=== PATIENT | female | born 1965 ===

== ENCOUNTER 2021-07-02 07:51 | Emergency (ER) | payer OTHER, SELFPAY ==
--- NOTE | ~2021-07-02 | US_ITS ---
EXAMINATION: US VENOUS ULTRASOUND WITH DOPPLER LOWER EXTREMITY, BILATERAL CLINICAL INFORMATION: Lower extremity edema and pain. History of previous DVT. COMPARISON: September 24, 2015 and January 13, 2015 TECHNIQUE: Ultrasound of the deep veins is performed from the hip to the calf with compression sonography and color and pulse Doppler assessment. Spectral analysis with color-flow imaging is performed. FINDINGS: RIGHT: There is normal venous compression and respiratory variation and augmented flow. The visualized common femoral vein, superficial femoral vein, profunda femoral vein, popliteal vein, and the trifurcation region shows no evidence of deep venous thrombosis. There is no significant popliteal fossa cyst. No popliteal artery aneurysm. LEFT: There is normal venous compression and respiratory variation and augmented flow. The visualized common femoral vein, superficial femoral vein, profunda femoral vein, popliteal vein, and the trifurcation region shows no evidence of deep venous thrombosis. There is no significant popliteal fossa cyst. No popliteal artery aneurysm. I do not see evidence for sequela of deep venous thrombosis. US/US venous duplex LE BI IMPRESSION: No acute DVT demonstrated in the bilateral lower extremities.
--- NOTE | ~2021-07-02 | XR_ITS ---
EXAMINATION: XR CHEST CLINICAL INFORMATION: Shortness of breath COMPARISON: None TECHNIQUE: Portable upright AP view of the chest was obtained. FINDINGS: Lungs are clear. There is no pneumothorax, airspace consolidation or groundglass opacity. No effusion. The heart is normal in size. The vascularity is normal. The hilar and mediastinal contours and visualized bony structures are unremarkable. XR/XR chest 1V IMPRESSION: Unremarkable examination.
[2021-07-02 08:08] VITALS: BP 152/111; PULSE 75; RESP 19; O2SAT 98; BMI 53.0
--- NOTE | 2021-07-02 09:31 | ECG_ITS ---
Test Reason : WEAKNESS Blood Pressure : / mmHG Vent. Rate : 056 BPM Atrial Rate : 056 BPM P-R Int : 136 ms QRS Dur : 086 ms QT Int : 432 ms P-R-T Axes : 056 -16 017 degrees QTc Int : 416 ms Sinus bradycardia Otherwise normal ECG No previous ECGs available Referred By: Shani Iglesias Electronically Signed By:DALE ZACARIAS MD
--- NOTE | 2021-07-02 09:34 | ED.GENADULT ---
HPI - General Adult General Chief complaint: General Medical Stated complaint: leg pain & swelling Time Seen by Provider: 07/02/21 09:23 Source: patient Mode of arrival: ambulatory Limitations: no limitations History of Present Illness HPI narrative: Patient comes to the emergency room complaining of bilateral lower extremity edema. Patient states that she has had lower extremity edema for 10-15 years, taking daily 10 mg of Lasix. Over last year, the swelling has become more frequent. However, over last 4 days the lower extremities have been hurting, becoming more tense, painful to touch from the toes to the knees bilaterally. 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 Patient states that sometimes when she walks she gets short of breath, which has been going on for about 3 months now. Patient denies chest pain. Related Data Previous Rx's Medication Instructions Recorded furosemide 20 mg tablet (Lasix) 20 mg PO BID #8 tab 07/02/21 Allergies Allergy/AdvReac Type Severity Reaction Status Date / Time aspirin [ASPIRIN] Allergy Unknown HIVES/RASH Unverified 05/08/20 15:17 iodine [IODINE] Allergy Unknown RASH Unverified 05/08/20 15:17 latex [LATEX] Allergy Unknown HIVES Unverified 05/08/20 15:17 shellfish derived Allergy Unknown SWELLING Unverified 05/08/20 15:17 [SHELLFISH DERIVED] AND RASH Review of Systems Review of Systems: Constitutional : No Weight loss, No Fever, No Chills, No Night Sweats, No Fatigue, No Malaise ENT/Mouth : No Hearing loss, No Ear Pain, No Nasal Congestion, No Sinus Pain, No Hoarseness, No sore throat, No Rhinorrhea, No Swallowing Difficulty Eyes: No Eye Pain, No Swelling, No Redness, No Foreign Body, No Discharge, No Vision Changes Cardiovascular : No Chest Pain, complaining of occasional palpitations, shortness of breath with exertion, complaining of worsening lower extremity edema Respiratory : No Cough, No Sputum, No Wheezing, No Smoke Exposure, No Dyspnea Gastrointestinal : No Nausea, No Vomiting, No Diarrhea, No Constipation, No abdominal Pain, No Hematochezia, No Melena Genitourinary : no irregular bleeding, No Dysuria, No Urinary Frequency, No Hematuria, No Urinary Incontinence, No Urgency, No Flank Pain, No Urinary Flow Changes, No Hesitancy Musculoskeletal : No joint pain, No Myalgias, No Joint Swelling Skin : No Skin Lesions, No rash Neuro : No Weakness, No Numbness, No Paresthesias, No Loss of Consciousness, No Dizziness, No Headache Psych : No Anxiety/Panic, No Depression, No SI/HI/AH/VH, No Social Issues, Heme/Lymph: No Bruising, No Bleeding,No Lymphadenopathy Endocrine : No Polyuria, No Polydipsia, No Temperature Intolerance FOR[facility]LY [facility] Past Medical History Medical History (Updated 07/02/21 @ 12:38 by Shani Iglesias MD) Arthritis Asthma DVT (deep venous thrombosis) Migraine Social History Social History Advance Directives: No Physical Exam Vital Signs: Vital Signs: Last Vital Signs Pulse 75 07/02/21 08:08 Resp 19 07/02/21 08:08 BP 152/111 H 07/02/21 08:08 Pulse Ox 98 07/02/21 08:08 Body Mass Index 53.0 Const: Other: Appearance: Alert. Oriented X3. No acute distress. Eyes: Pupils equal, round and reactive to light. ENT: Pharynx normal. Neck: Normal inspection. Neck supple. No lymph nodes noted. No crepitus CVS: Normal heart rate and rhythm. Pulses normal. Normal S1 and S2 Respiratory: No respiratory distress. Breath sounds normal. No Wheezing. No rales Abdomen: Soft and nontender. No rigidity. No distention. Skin: Skin warm and dry. Normal skin color. Normal skin turgor. Extremities: +2 bilateral pitting edema, pain to palpation in the feet, ankles and calfs. No Lacerations. No Rash Neuro: Oriented X 3. No motor deficit. No sensory deficit. Moving all extermities. No slurred speech. Course Course Course Narrative: I discussed the labs and imaging with the patient, patient likely having venous insufficiency. Chest x-ray does not show edema. Patient has no respiratory symptoms. I discussed with the patient that instead of taking Lasix 10 mg she will be taking 20 mg in the morning 20 in the afternoon for several days and also patient will need close follow-up with her PCP for repeat labs. Patient agrees with plan. Medical Decision Making Lab Data Result diagrams: 07/02/21 09:49 07/02/21 09:49 Labs: Lab Results 07/02/21 07/02/21 07/02/21 Range/Units 09:49 09:49 09:49 WBC 3.0 L (4.8-10.8) X10*3/uL RBC 4.29 (4.20-5.50) X10*6/uL Hgb 12.4 (12.0-16.0) g/dl Hct 39.7 (37.0-47.0) % MCV 92.5 (80.0-98.0) fL MCH 28.9 (27.0-33.0) pg MCHC 31.2 (31.0-35.0) g/dl RDW 15.5 (11.0-16.0) % Plt Count 179 (160-400) X10*3/uL MPV 12.8 H (9.4-12.3) fL Immature Gran % (Auto) 0.0 (0.0-0.4) % Neut % (Auto) 35.9 L (45-73) % Lymph % (Auto) 47.9 H (20-40) % Mcleod % (Auto) 12.2 H (2-11) % Eos % (Auto) 3.0 (0-4) % Baso % (Auto) 1.0 (0-2) % Lymph # (Auto) 1.5 (1.2-4.9) X10*3/uL Mcleod # (Auto) 0.4 (0.1-1.2) X10*3/uL Eos # (Auto) 0.1 (0.0-0.4) X10*3/uL Baso # (Auto) 0.0 (0.0-0.2) X10*3/uL Abs Immat Gran (auto) 0.00 (0.00-0.03) X10*3/uL Absolute Neuts (auto) 1.1 L (2.0-8.3) x10*3/uL Absolute Nucleated RBC 0.000 (0.0-0.012) X10*3/uL Nucleated RBC % (auto) 0.0 (0.0-0.2) /100WBC PT 11.5 (9.9-13.0) SEC INR 1.0 (0.9-1.1) Sodium 142 (135-145) mmol/L Potassium 4.4 (3.3-5.1) mmol/L Chloride 107 (96-108) mmol/L Carbon Dioxide 28 (22-29) mmol/L Anion Gap 11 L (12-20) BUN 13 (9-16) mg/dL Creatinine 0.77 (0.5-1.4) mg/dL Estim Creat Clear Calc 105.1 Estimated GFR > 60 Random Glucose 83 (60-115) mg/dL Calcium 8.8 (8.4-10.2) mg/dL Total Bilirubin 0.5 (0.0-1.0) mg/dL Direct Bilirubin 0.2 (0.0-0.5) mg/dL AST 15 (5-31) U/L ALT 13 (0-31) U/L Alkaline Phosphatase 94 (39-117) U/L Troponin I High Sens (<3.5-17.0) ng/L B-Natriuretic Peptide (<100) pg/mL Total Protein 7.1 (6.5-8.0) g/dL Albumin 4.0 (3.5-5.0) g/dL COVID-19 (CARON) (Negative) COVID-19 Clin Com 07/02/21 07/02/21 Range/Units 09:49 09:49 WBC (4.8-10.8) X10*3/uL RBC (4.20-5.50) X10*6/uL Hgb (12.0-16.0) g/dl Hct (37.0-47.0) % MCV (80.0-98.0) fL MCH (27.0-33.0) pg MCHC (31.0-35.0) g/dl RDW (11.0-16.0) % Plt Count (160-400) X10*3/uL MPV (9.4-12.3) fL Immature Gran % (Auto) (0.0-0.4) % Neut % (Auto) (45-73) % Lymph % (Auto) (20-40) % Mcleod % (Auto) (2-11) % Eos % (Auto) (0-4) % Baso % (Auto) (0-2) % Lymph # (Auto) (1.2-4.9) X10*3/uL Mcleod # (Auto) (0.1-1.2) X10*3/uL Eos # (Auto) (0.0-0.4) X10*3/uL Baso # (Auto) (0.0-0.2) X10*3/uL Abs Immat Gran (auto) (0.00-0.03) X10*3/uL Absolute Neuts (auto) (2.0-8.3) x10*3/uL Absolute Nucleated RBC (0.0-0.012) X10*3/uL Nucleated RBC % (auto) (0.0-0.2) /100WBC PT (9.9-13.0) SEC INR (0.9-1.1) Sodium (135-145) mmol/L Potassium (3.3-5.1) mmol/L Chloride (96-108) mmol/L Carbon Dioxide (22-29) mmol/L Anion Gap (12-20) BUN (9-16) mg/dL Creatinine (0.5-1.4) mg/dL Estim Creat Clear Calc Estimated GFR Random Glucose (60-115) mg/dL Calcium (8.4-10.2) mg/dL Total Bilirubin (0.0-1.0) mg/dL Direct Bilirubin (0.0-0.5) mg/dL AST (5-31) U/L ALT (0-31) U/L Alkaline Phosphatase (39-117) U/L Troponin I High Sens < 3.5 (<3.5-17.0) ng/L B-Natriuretic Peptide 116 H (<100) pg/mL Total Protein (6.5-8.0) g/dL Albumin (3.5-5.0) g/dL COVID-19 (CARON) Negative (Negative) COVID-19 Clin Com See Note Imaging Data Venous US: Radiologist's impression: FINDINGS: RIGHT: There is normal venous compression and respiratory variation and augmented flow. The visualized common femoral vein, superficial femoral vein, profunda femoral vein, popliteal vein, and the trifurcation region shows no evidence of deep venous thrombosis. ? There is no significant popliteal fossa cyst. No popliteal artery aneurysm. LEFT: There is normal venous compression and respiratory variation and augmented flow. The visualized common femoral vein, superficial femoral vein, profunda femoral vein, popliteal vein, and the trifurcation region shows no evidence of deep venous thrombosis. ? There is no significant popliteal fossa cyst. No popliteal artery aneurysm. I do not see evidence for sequela of deep venous thrombosis. US/US venous duplex LE BI IMPRESSION: No acute DVT demonstrated in the bilateral lower extremities. Chest x-ray: Radiologist's impression: FINDINGS: Lungs are clear. There is no pneumothorax, airspace consolidation or groundglass opacity. No effusion. The heart is normal in size. The vascularity is normal. The hilar and mediastinal contours and visualized bony structures are unremarkable. XR/XR chest 1V IMPRESSION: Unremarkable examination. ECG Data Attestation: I personally reviewed and interpreted this ECG as follows: (Pain is bradycardia, heart 56, no ST segment depression or elevation, no T-wave inversion, QTC 416) Discharge Plan Discharge Clinical Impression: Bilateral lower extremity edema Patient Disposition: Home, Self-Care Instructions: Leg Edema (ED) Additional Instructions: Please follow-up with your primary care physician tomorrow. If you have any worsening or new symptoms, please return to the emergency room or call 911 Prescriptions: New furosemide [Lasix] 20 mg tablet 20 mg PO BID Qty: 8 RF: 0
[2021-07-02 09:56] LABS: MANUAL DIFF FLAG NO
[2021-07-02 10:00] LABS: Eosinophils Absolute Auto 0.1 X10*3/uL (0.0-0.4); Hematocrit 39.7 % (37.0-47.0); Hemoglobin 12.4 g/dl (12.0-16.0); Lymphocytes Absolute Auto 1.5 X10*3/uL (1.2-4.9); Lymphocytes Percent Auto 47.9 % (20-40); Mean Corpuscular HGB Conc 31.2 g/dl (31.0-35.0); Mean Corpuscular Hemoglobin 28.9 pg (27.0-33.0); Mean Corpuscular Volume 92.5 fL (80.0-98.0); Mean Platelet Volume 12.8 fL (9.4-12.3); Monocytes Absolute Auto 0.4 X10*3/uL (0.1-1.2); Monocytes Percent Auto 12.2 % (2-11); Neutrophils Absolute Auto 1.1 x10*3/uL (2.0-8.3); Neutrophils Percent Auto 35.9 % (45-73); Platelet Count 179 X10*3/uL (160-400); Red Blood Count 4.29 X10*6/uL (4.20-5.50); Red Cell Distribution Width 15.5 % (11.0-16.0)
[2021-07-02 10:11] LABS: COVID-19 Test Negative (Negative); IDNOW Serial# 9DD0AD1C
[2021-07-02 10:14] LABS: Prothrombin Time 11.5 SEC (9.9-13.0)
[2021-07-02 10:19] LABS: Alanine Aminotransferase 13 U/L (0-31); Alkaline Phosphatase 94 U/L (39-117); Anion Gap 11 (12-20); Aspartate Amino Transferase 15 U/L (5-31); Bilirubin Direct 0.2 mg/dL (0.0-0.5); Bilirubin Total 0.5 mg/dL (0.0-1.0); Blood Urea Nitrogen 13 mg/dL (9-16); Calcium 8.8 mg/dL (8.4-10.2); Carbon Dioxide 28 mmol/L (22-29); Chloride 107 mmol/L (96-108); Creatinine Clr Calc Pharmacy 105.1; Estimated Glomerular Filt Rate > 60; Glucose Random 83 mg/dL (60-115); Potassium 4.4 mmol/L (3.3-5.1); Sodium 142 mmol/L (135-145); Total Protein 7.1 g/dL (6.5-8.0)
[2021-07-02 10:21] LABS: B Type Natriuretic Peptide 116 pg/mL (<100); Troponin-I High Sensitivity < 3.5 ng/L (<3.5-17.0)
--- NOTE | 2021-07-02 13:10 | PHA.MEDREC ---
Pharmacy Consult ? Medication Reconciliation Pharmacy has completed the medication reconciliation. Patient report taking trazodone but has no filled history for trazodone. Deandra Gonzalez, AmanD
[2021-07-02] MEDS: Acetaminophen 325 MG TABLET 650 MG PO (13:35)
== END 2021-07-02 13:37 | disposition home or self-care (01) ==
PROVIDERS: Emergency Provider Emergency Medicine; PCP Internal Medicine
DX: R60.0 Localized edema (principal); J45.909 Unspecified asthma, uncomplicated; Z86.718 Personal history of other venous thrombosis and embolism; Z20.822 Contact with and (suspected) exposure to COVID-19
CPT/HCPCS: 36415; 71045; 80048; 80076; 83880; 84484; 85025; 85610; 87635; 93005; 93970; 99283; 99284

== ENCOUNTER 2022-02-21 08:27 | Emergency (ER) | payer OTHER, SELFPAY ==
--- NOTE | ~2022-02-21 | XR_ITS ---
EXAMINATION: XR CHEST CLINICAL INFORMATION: Weakness, shortness of breath. COMPARISON: 07/02/2021 chest radiograph. TECHNIQUE: 2 views of the chest were obtained. FINDINGS: No significant abnormality is noted involving the heart, lungs, mediastinum, bony thorax or soft tissues. XR/XR chest 2V IMPRESSION: No acute cardiopulmonary process.
--- NOTE | ~2022-02-21 | CT_ITS ---
EXAMINATION: CT ANGIOGRAM OF THE CHEST WITH AND WITHOUT CONTRAST (CT PULMONARY ANGIOGRAM FOR PE) CLINICAL INFORMATION: Reason for Exam Chest pain, shortness of breath, elevated D-dime COMPARISON: None TECHNIQUE: Prior to contrast administration, noncontrast localization images were obtained. Subsequently, multidetector volumetric imaging was performed from the thoracic inlet to below the diaphragms following the administration of 71 mL Omnipaque 350 intravenous contrast. No contrast reaction reported patient was premedicated with Benadryl. Sagittal, coronal, and MIP oblique sagittal reformatted images were obtained on the CT workstation, uploaded to PACS, and reviewed. This CT examination was performed using dose optimization techniques as appropriate, variously including the following: *Automated exposure control *Adjustment of mA and/or kV according to patient size (this includes techniques or standardized protocols for targeted exams where dose is matched to indication/reason for exam; i.e. extremities or head) *Use of iterative reconstruction technique Total exam dose-length product 662 mGy-cm FINDINGS: QUALITY OF STUDY/CONTRAST BOLUS: Suboptimal. Somewhat limited assessment for smaller segmental pulmonary emboli due to suboptimal contrast opacification. PULMONARY ARTERIES: No central or obvious large segmental pulmonary emboli. Normal caliber central pulmonary trunk measuring 2.7 cm in diameter. THORACIC AORTA: No aneurysm or dissection. LUNG: Tiny calcified granuloma in the superior segment right lower lobe. No suspicious pulmonary nodules. No airspace consolidation. Minimal dependent atelectasis and subsegmental atelectasis in the right lower lobe. No airspace consolidation. No pneumothorax. Central airways are clear. PLEURA: No pleural effusion or pneumothorax. MEDIASTINUM: No cardiomegaly. No pericardial effusion. No mediastinal or hilar lymphadenopathy. Small hiatal hernia. No evidence of septal bowing or right heart strain. CHEST WALL/AXILLA: No axillary or internal mammary lymphadenopathy. OSSEOUS STRUCTURES: No acute or suspicious osseous abnormality. Mild multilevel degenerative disc disease. UPPER ABDOMEN: Prominently distended gallbladder. No surrounding pericholecystic inflammatory change. No calcified gallstones. Status post prior gastric bypass. Visualized upper abdominal viscera otherwise grossly unremarkable. No reflux of contrast into the hepatic veins to suggest elevated right heart pressures. CT/CT angio chest PE protocol IMPRESSION: 1. Somewhat limited assessment for detecting segmental pulmonary emboli due to suboptimal contrast opacification. No large segmental or evidence of central pulmonary embolus. 2. No airspace consolidation or effusions. VTE: negative
[2022-02-21 09:25] LABS: MANUAL DIFF FLAG NO
[2022-02-21 09:26] LABS: Basophils Percent Auto 0.4 % (0-2); Eosinophils Absolute Auto 0.1 X10*3/uL (0.0-0.4); Eosinophils Percent Auto 1.3 % (0-4); Hemoglobin 13.5 g/dl (12.0-16.0); Imm Gran Abs Auto 0.01 X10*3/uL (0.00-0.03); Imm Gran Pct Auto 0.2 % (0.0-0.4); Lymphocytes Absolute Auto 1.3 X10*3/uL (1.2-4.9); Lymphocytes Percent Auto 27.8 % (20-40); Mean Corpuscular HGB Conc 31.4 g/dl (31.0-35.0); Mean Corpuscular Hemoglobin 29.5 pg (27.0-33.0); Mean Corpuscular Volume 93.9 fL (80.0-98.0); Mean Platelet Volume 12.5 fL (9.4-12.3); Monocytes Absolute Auto 0.5 X10*3/uL (0.1-1.2); Neutrophils Absolute Auto 2.9 x10*3/uL (2.0-8.3); Neutrophils Percent Auto 60.3 % (45-73); Platelet Count 186 X10*3/uL (160-400); Red Blood Count 4.58 X10*6/uL (4.20-5.50); White Blood Count 4.8 X10*3/uL (4.8-10.8)
[2022-02-21 09:41] LABS: Anion Gap 15 (12-20); Blood Urea Nitrogen 16 mg/dL (9-16); Carbon Dioxide 25 mmol/L (22-29); Chloride 106 mmol/L (96-108); Estimated Glomerular Filt Rate 55; Glucose Random 107 mg/dL (60-115); Potassium 4.2 mmol/L (3.3-5.1); Sodium 142 mmol/L (135-145)
[2022-02-21 09:48] LABS: B Type Natriuretic Peptide 13 pg/mL (<100)
[2022-02-21 10:22] VITALS: BP 152/90; PULSE 82; RESP 18; TEMP 36.4; O2SAT 98; BMI 51.3
[2022-02-21 12:40] VITALS: BP 138/65; PULSE 62; RESP 20; O2SAT 97
[2022-02-21] MEDS: oxyCODONE HCl Immed Release 5 MG TABLET 10 MG PO (12:40)
[2022-02-21 12:57] LABS: Troponin-I High Sensitivity < 3.5 ng/L (<3.5-17.0)
[2022-02-21 12:59] LABS: Appearance Urine CLEAR; Color Urine STRAW; Glucose Urine UA NEG (NEG); Leukocyte Esterase Urine NEG (NEG); Nitrite Urine NEG (NEG); PH 5.5 (5.0-8.0); UACC Culture Trigger NO; Urine Blood TRACE (NEG); Urine Ketones NEG (NEG); Urine Protein NEG (NEG-TRACE)
--- NOTE | 2022-02-21 13:15 | ED.SOB ---
HPI - SOB/Dyspnea General Chief Complaint: Dyspnea Stated Complaint: Swollen feet/SOB/leg pain Time Seen by Provider: 02/21/22 11:51 Source: patient Mode of arrival: ambulatory Limitations: no limitations History of Present Illness HPI Narrative: 56-year-old female who presents emergency department for evaluation of shortness of breath and chest pain. Patient states that shortness of breath began yesterday came on gradually. She points to her left chest when asked to localize the pain. She describes the pain as a ripping sensation which is greater than 10/10. She states the pain began at 01:00 hours and has been constant and at the time of evaluation she was still having chest pain ( 11 hours). She states that she has noticed swelling from her feet to her knees, she does take furosemide 20 mg daily. She had a subjective fever and chills. She complained of rhinorrhea, sore throat nonproductive cough. She had nausea with 4 episodes of vomiting today in 4 episodes of diarrhea which she describes as loose stool with no blood in the stool. MD elicited complaint: chest pain Onset (ago): hour(s) (11) Timing: constant Severity: severe Exacerbating factors: nothing Relieving factors: nothing Known history of: asthma Associated symptoms: fever, cough and nausea/vomiting ( Diarrhea) Treatment prior to arrival: none Related Data Home oxygen amount: none Home Medications Medication Instructions Recorded Confirmed acetaminophen 500 mg tablet 500 mg PO Q6H PRN Pain 07/02/21 07/02/21 albuterol sulfate 90 mcg/actuation 2 puff inhalation Q6H 07/02/21 07/02/21 aerosol inhaler (ProAir HFA) ferrous sulfate 325 mg (65 mg 325 mg PO BID 07/02/21 07/02/21 iron) tablet (FeroSul) fluoxetine 20 mg capsule 3 cap PO QAM 07/02/21 07/02/21 methocarbamol 500 mg tablet 1,500 mg PO TID 07/02/21 07/02/21 montelukast 10 mg tablet 1 tab PO DAILY 07/02/21 07/02/21 nystatin-triamcinolone 100,000 1 appl topical BID 07/02/21 07/02/21 unit/g-0.1 % topical cream omeprazole 40 mg capsule,delayed 1 cap PO DAILY 07/02/21 07/02/21 release pramipexole 1 mg tablet 1 mg PO TID 07/02/21 07/02/21 Previous Rx's Medication Instructions Recorded furosemide 20 mg tablet (Lasix) 20 mg PO BID #8 tabs 07/02/21 morphine 15 mg immediate release 15 mg PO Q4-6H PRN pain #10 tabs 02/21/22 tablet Allergies Allergy/AdvReac Type Severity Reaction Status Date / Time aspirin [ASPIRIN] Allergy Unknown HIVES/RASH Verified 02/21/22 10:21 iodine [IODINE] Allergy Unknown RASH Verified 02/21/22 10:21 latex [LATEX] Allergy Unknown HIVES Verified 02/21/22 10:21 shellfish derived Allergy Unknown SWELLING Verified 02/21/22 10:21 [SHELLFISH DERIVED] AND RASH PMFSH Past Medical History Medical History (Updated 02/21/22 @ 17:12 by Dakotah Guzman MD) Arthritis Asthma DVT (deep venous thrombosis) Migraine Social History Social History Smoked in Last 30 Days: No Use of substances other than those prescribed or required for medical reasons: No Advance Directives: No Advance Directives Information Provided: Yes Physical Exam Vital Signs: Vital Signs: Last Vital Signs Temp 97.6 F 02/21/22 10:22 Pulse 59 02/21/22 15:53 Resp 16 02/21/22 15:53 BP 119/55 L 02/21/22 15:53 Pulse Ox 97 02/21/22 12:40 O2 Del Method 02/21/22 12:40 BMI result Body Mass Index 51.3 Const: Other: awake, alert, female patient, very pleasant cooperative, answers all questions appropriately, does not appear to be in distress, BMI 51.4 HEENT: Head: Yes normal to inspection, Yes normocephalic and Yes atraumatic Ears: external ears normal General nose exam: Normal external nose present Face and sinus: Yes normal facial exam Mouth: Normal oral and palatal mucosa present Throat: Yes posterior oropharynx normal Eyes: General: appearance normal, both eyes and all related structures Pupils: Equal, round and reactive pupils present Neck: Neck: Yes normal visual inspection, Yes no lymphadenopathy, Yes trachea midline and Yes supple Chest: Chest palpation & inspection: normal inspection of the chest and tenderness ( moderate left chest wall tenderness) Resp: Effort & Inspection: normal respiratory effort and able to speak in complete sentences Auscultation: clear to auscultation bilaterally Cardio: Rate: regular rate Rhythm: regular rhythm Heart sounds: S1 normal heart sound present, S2 normal heart sound present and no murmurs GI: Inspection: Yes normal to inspection Palpation (GI): Soft to palpation, nontender and no guarding Auscultation: normal bowel sounds : General: Yes no CVA tenderness Back/Spine/Pelvis: Back: no CVA tenderness Skin: General skin exam: no rashes or lesions noted Neuro: Cranial nerves: Yes CN's II-XII intact bilaterally and Yes Equal, round and reactive pupils present Cognition (Neuro): normal cognition Motor exam (neuro): 5/5 motor strength present throughout Extrem: General: Yes normal to inspection Psych: Appearance: grossly normal Speech and movement: Normal speech and movement present Affect: normal affect Attitude: cooperative Thought process: Normal thought process present Thought content: Normal thought content present Course Course Course Narrative: 56-year-old female who presents emergency department for evaluation of shortness of breath lower extremity swelling and chest pain x2 days. The patient has been experiencing chest pain for approximately 12 hours. The patient's vital signs revealed an elevated blood pressure of 152/90 otherwise unremarkable with an O2 saturation of 98% on room air. Patient's exam did reveal moderate left-sided chest wall tenderness otherwise was unremarkable. Laboratory evaluation was ordered including CBC, CMP, BNP,troponin now and a troponin in 3 hours, D-dimer, PT / INR, PTT and a urinalysis. EKG and chest x-ray will be obtained as well 1707: EKG was unremarkable. CBC and BMP were normal. BNP was normal. chest x-ray revealed no acute disease. D-dimer was elevated Therefore CT pulmonary angiogram PE protocol was obtained . The radiology impression is as follows: IMPRESSION: 1. Somewhat limited assessment for detecting segmental pulmonary emboli due to suboptimal contrast opacification. No large segmental or evidence of central pulmonary embolus. 2. No airspace consolidation or effusions. VTE: negative Dictated By:Manny Hyde The patient did require a dose of morphine 4 mg IV and she is currently pain-free. Patient was advised to take Tylenol for pain and for pain not relieved by Tylenol she was prescribed morphine MDM - SOB/Dyspnea Differential Diagnosis Differential diagnosis: Likely congestive heart failure, pneumonia, asthma with exacerbation, pulmonary embolism and anemia Medical Records Attestation: I reviewed the patient's medical records. Lab Data Attestation: I reviewed the patient's lab results. Result diagrams: 02/21/22 09:21 02/21/22 09:21 Labs: Lab Results 02/21/22 02/21/22 02/21/22 Range/Units 09:21 09:21 09:21 WBC 4.8 (4.8-10.8) X10*3/uL RBC 4.58 (4.20-5.50) X10*6/uL Hgb 13.5 (12.0-16.0) g/dl Hct 43.0 (37.0-47.0) % MCV 93.9 (80.0-98.0) fL MCH 29.5 (27.0-33.0) pg MCHC 31.4 (31.0-35.0) g/dl RDW 15.0 (11.0-16.0) % Plt Count 186 (160-400) X10*3/uL MPV 12.5 H (9.4-12.3) fL Immature Gran % (Auto) 0.2 (0.0-0.4) % Neut % (Auto) 60.3 (45-73) % Lymph % (Auto) 27.8 (20-40) % Metcalfe % (Auto) 10.0 (2-11) % Eos % (Auto) 1.3 (0-4) % Baso % (Auto) 0.4 (0-2) % Lymph # (Auto) 1.3 (1.2-4.9) X10*3/uL Metcalfe # (Auto) 0.5 (0.1-1.2) X10*3/uL Eos # (Auto) 0.1 (0.0-0.4) X10*3/uL Baso # (Auto) 0.0 (0.0-0.2) X10*3/uL Abs Immat Gran (auto) 0.01 (0.00-0.03) X10*3/uL Absolute Neuts (auto) 2.9 (2.0-8.3) x10*3/uL Absolute Nucleated RBC 0.000 (0.0-0.012) X10*3/uL Nucleated RBC % (auto) 0.0 (0.0-0.2) /100WBC PT (10.0-13.1) SEC INR (0.9-1.1) APTT (24.1-38.0) SEC D-Dimer High Sensitivty NG/ML Sodium 142 (135-145) mmol/L Potassium 4.2 (3.3-5.1) mmol/L Chloride 106 (96-108) mmol/L Carbon Dioxide 25 (22-29) mmol/L Anion Gap 15 (12-20) BUN 16 (9-16) mg/dL Creatinine 1.04 (0.5-1.4) mg/dL Estim Creat Clear Calc TNP Estimated GFR 55 Random Glucose 107 (60-115) mg/dL Calcium 9.0 (8.4-10.2) mg/dL Troponin I High Sens < 3.5 (<3.5-17.0) ng/L B-Natriuretic Peptide 13 (<100) pg/mL Urine Color Urine Appearance Urine pH (5.0-8.0) Ur Specific [place] (1.005-1.025) Urine Protein (NEG-TRACE) MG/DL Urine Glucose (UA) (NEG) MG/DL Urine Ketones (NEG) MG/DL Urine Blood (NEG) Urine Nitrite (NEG) Ur Leukocyte Esterase (NEG) Urine RBC (0) /HPF Urine WBC (0-4) /HPF Ur Squamous Epith Cells /LPF Urine Bacteria /LPF 02/21/22 02/21/22 02/21/22 Range/Units 12:50 12:53 13:36 WBC (4.8-10.8) X10*3/uL RBC (4.20-5.50) X10*6/uL Hgb (12.0-16.0) g/dl Hct (37.0-47.0) % MCV (80.0-98.0) fL MCH (27.0-33.0) pg MCHC (31.0-35.0) g/dl RDW (11.0-16.0) % Plt Count (160-400) X10*3/uL MPV (9.4-12.3) fL Immature Gran % (Auto) (0.0-0.4) % Neut % (Auto) (45-73) % Lymph % (Auto) (20-40) % Metcalfe % (Auto) (2-11) % Eos % (Auto) (0-4) % Baso % (Auto) (0-2) % Lymph # (Auto) (1.2-4.9) X10*3/uL [place]fe # (Auto) (0.1-1.2) X10*3/uL Eos # (Auto) (0.0-0.4) X10*3/uL Baso # (Auto) (0.0-0.2) X10*3/uL Abs Immat Gran (auto) (0.00-0.03) X10*3/uL Absolute Neuts (auto) (2.0-8.3) x10*3/uL Absolute Nucleated RBC (0.0-0.012) X10*3/uL Nucleated RBC % (auto) (0.0-0.2) /100WBC PT 11.9 (10.0-13.1) SEC INR 1.0 (0.9-1.1) APTT 37.7 (24.1-38.0) SEC D-Dimer High Sensitivty 245 NG/ML Sodium (135-145) mmol/L Potassium (3.3-5.1) mmol/L Chloride (96-108) mmol/L Carbon Dioxide (22-29) mmol/L Anion Gap (12-20) BUN (9-16) mg/dL Creatinine (0.5-1.4) mg/dL Estim Creat Clear Calc Estimated GFR Random Glucose (60-115) mg/dL Calcium (8.4-10.2) mg/dL Troponin I High Sens < 3.5 (<3.5-17.0) ng/L B-Natriuretic Peptide (<100) pg/mL Urine Color STRAW Urine Appearance CLEAR Urine pH 5.5 (5.0-8.0) Ur Specific [place] 1.020 (1.005-1.025) Urine Protein NEG (NEG-TRACE) MG/DL Urine Glucose (UA) NEG (NEG) MG/DL Urine Ketones NEG (NEG) MG/DL Urine Blood TRACE (NEG) Urine Nitrite NEG (NEG) Ur Leukocyte Esterase NEG (NEG) Urine RBC 0-2 (0) /HPF Urine WBC 0-2 (0-4) /HPF Ur Squamous Epith Cells TRACE /LPF Urine Bacteria NONE /LPF ECG Data Attestation: I personally reviewed and interpreted this ECG as follows: Interpretation: 1100: Sinus bradycardia with a rate of 56, normal SD interval, QRS duration QTC interval, inverted T-wave in lead 3, no ST segment elevation, no ST segment depression, no PACs, no PVCs except for the sinus bradycardia this is a normal EKG. Discharge Plan Discharge Clinical Impression: Acute costochondritis Patient Disposition: Home, Self-Care Instructions: Costochondritis (ED) Additional Instructions: Your 1st troponin and 3 hour troponin (marker of heart attack) were below detectable limits which is reassuring suggesting that your pain was not caused by a heart attack. Your D-dimer was elevated however the CT pulmonary angiogram of your lungs revealed no blood clots and no other problems with her lungs to explain your chest pain. You were very tender on the left side of your chest when I pushed on your chest, at this time I believe that your pain is caused by inflammation of the joints of your chest (costochondritis). Take Tylenol (acetaminophen) 2 pills every 4-6 hours as needed for pain. For pain not relieved by Tylenol take morphine 15 mg pills, 1 pill every 4 hours as needed for pain. This medication will make you sleepy, do not drive or work while taking this medication. Morphine is a narcotic medication and can be addicting. If you are concerned about addiction you can ask the pharmacist for less pills or do not get this prescription filled. Follow-up with your doctor in 2 days. Please return to the emergency department if your symptoms get worse or if you develop any symptoms that are concerning to you. Prescriptions: New morphine 15 mg tablet 15 mg PO Q4-6H PRN (Reason: pain) Qty: 10 0RF Rx Instructions: The patient may ask for partial fill; Partial Fill upon patient request. No Action furosemide [Lasix] 20 mg tablet 20 mg PO BID Qty: 8 0RF pramipexole 1 mg tablet 1 mg PO TID methocarbamol 500 mg tablet 1,500 mg PO TID omeprazole 40 mg capsule,delayed release(DR/EC) 1 cap PO DAILY acetaminophen 500 mg tablet 500 mg PO Q6H PRN (Reason: Pain) ferrous sulfate [FeroSul] 325 mg (65 mg iron) tablet 325 mg PO BID nystatin-triamcinolone 100,000-0.1 unit/g-% cream 1 appl topical BID montelukast 10 mg tablet 1 tab PO DAILY albuterol sulfate [ProAir HFA] 90 mcg/actuation HFA aerosol inhaler 2 puff inhalation Q6H fluoxetine 20 mg capsule 3 cap PO QAM
[2022-02-21 13:19] LABS: Troponin-I High Sensitivity < 3.5 ng/L (<3.5-17.0)
[2022-02-21 13:19] LABS: RBC Urine 0-2 /HPF (0); Squamous Epithelial Cell Urine TRACE /LPF; WBC Urine 0-2 /HPF (0-4)
[2022-02-21 13:53] LABS: D Dimer High Sensitivity 245 NG/ML
[2022-02-21 14:35] LABS: Prothrombin Time 11.9 SEC (10.0-13.1)
[2022-02-21 14:37] LABS: Partial Thromboplastin Time 37.7 SEC (24.1-38.0)
[2022-02-21] MEDS: diphenhydrAMINE HCL 50 MG/ML VIAL IVPUSH (15:52)
[2022-02-21] MEDS: Morphine Sulfate 4 MG/ML CARTRIDGE IVPUSH (15:52)
[2022-02-21 15:53] VITALS: BP 119/55; PULSE 59; RESP 16
[2022-02-21] MEDS: iohexoL 350 MG/ML 100 ML INFUS..BTL IV (16:24)
== END 2022-02-21 17:31 | disposition home or self-care (01) ==
PROVIDERS: Emergency Provider Emergency Medicine Emergency Medical Services
DX: M94.0 Chondrocostal junction syndrome [Tietze] (principal); R06.02 Shortness of breath; R05.9 Cough, unspecified; R50.9 Fever, unspecified; Z79.899 Other long term (current) drug therapy; Z20.822 Contact with and (suspected) exposure to COVID-19
CPT/HCPCS: 36415; 71046; 71275; 80048; 81001; 81003; 83880; 84484; 85025; 85379; 85610; 85730; 96374; 96375; 99284; J1200; J2270; Q9967

== ENCOUNTER 2023-03-21 17:36 | Emergency (ER) | payer OTHER, SELFPAY ==
--- NOTE | ~2023-03-21 | XR_ITS ---
EXAMINATION: XR ANKLE, LEFT CLINICAL INFORMATION: Left ankle pain COMPARISON: Left ankle 09/24/2015 TECHNIQUE: AP, lateral, and mortise views of the left ankle. FINDINGS: There is marked soft tissue swelling laterally. No fractures are seen. The ankle mortise appears stable.. On the dorsum of the foot there is a large osteophyte arising from the navicular. A lucent line is seen through this that was not identified with certainty on the 09/24/2015 study. Please correlate for point tenderness in this region regarding any avulsion fracture. No soft tissue swelling is seen in this region. XR/XR ankle LT min 3V IMPRESSION: 1. Marked soft tissue swelling laterally. 2. Large osteophyte arising from the navicular. A lucent line is seen through this region. Please correlate for point tenderness in this region regarding possible avulsion fracture although no soft tissue swelling is seen in this region.
[2023-03-21 18:11] VITALS: BP 107/30; PULSE 77; RESP 18; TEMP 36.7; O2SAT 96; BMI 47.8
--- NOTE | 2023-03-21 19:29 | PC.NURSE ---
ice applied to pt left ankle
[2023-03-21] MEDS: oxyCODONE HCl Immed Release 5 MG TABLET PO (21:21)
--- NOTE | 2023-03-21 21:24 | ED_ITS ---
HPI - General Adult General Chief complaint: Extremity Injury, Lower Stated complaint: left ankle swollen fell 03/21 Time Seen by Provider: 03/21/23 20:56 Source: patient, RN notes reviewed and old records reviewed Mode of arrival: ambulatory Limitations: no limitations History of Present Illness HPI narrative: A 57-year-old female presents for evaluation of left ankle/foot pain. Patient reports that she tried to get up out of the chair this morning. She states that her sandal she was wearing got caught underneath her foot causing her to trip She fell injuring her left ankle and describes an inversion injury Planes of 05/31 pain and reports that she could not walk She denies hitting her head or losing consciousness Patient states that she could not get up and was on the ground for approximately 20 minutes Related Data Home Medications Medication Instructions Recorded Confirmed acetaminophen 500 mg tablet 500 mg PO Q6H PRN Pain 07/02/21 07/02/21 albuterol sulfate 90 mcg/actuation 2 puff inhalation Q6H 07/02/21 07/02/21 aerosol inhaler (ProAir HFA) ferrous sulfate 325 mg (65 mg 325 mg PO BID 07/02/21 07/02/21 iron) tablet (FeroSul) fluoxetine 20 mg capsule 3 cap PO QAM 07/02/21 07/02/21 methocarbamol 500 mg tablet 1,500 mg PO TID 07/02/21 07/02/21 montelukast 10 mg tablet 1 tab PO DAILY 07/02/21 07/02/21 nystatin-triamcinolone 100,000 1 appl topical BID 07/02/21 07/02/21 unit/g-0.1 % topical cream omeprazole 40 mg capsule,delayed 1 cap PO DAILY 07/02/21 07/02/21 release pramipexole 1 mg tablet 1 mg PO TID 07/02/21 07/02/21 Previous Rx's Medication Instructions Recorded furosemide 20 mg tablet (Lasix) 20 mg PO BID #8 tabs 07/02/21 morphine 15 mg immediate release 15 mg PO Q4-6H PRN pain #10 tabs 02/21/22 tablet oxycodone 5 mg tablet 5 mg PO Q6H PRN severe pain (scale 03/21/23 score 7-10) #12 tabs Allergies Allergy/AdvReac Type Severity Reaction Status Date / Time aspirin [ASPIRIN] Allergy Unknown HIVES/RASH Verified 02/21/22 10:21 iodine [IODINE] Allergy Unknown RASH Verified 02/21/22 10:21 latex [LATEX] Allergy Unknown HIVES Verified 02/21/22 10:21 shellfish derived Allergy Unknown SWELLING Verified 02/21/22 10:21 [SHELLFISH DERIVED] AND RASH Review of Systems Cardiovascular: Cardiovascular: Denies syncope Musculoskeletal: Musculoskeletal: Reports arthralgias and Reports joint swelling Neurologic: Denies syncope [facility] Past Medical History Medical History (Updated 03/22/23 @ 00:02 by Background Daemon) Arthritis Asthma DVT (deep venous thrombosis) Migraine Social History Social History Advance Directives: No Advance Directives Information Provided: Yes Physical Exam ED Vital Signs: Vital Signs - 24 hr 03/21/23 18:11 Temperature 98.1 F Pulse Rate 77 Respiratory Rate 18 Blood Pressure 107/30 L Pulse Oximetry 96 Oxygen Delivery Method Room Air BMI result Body Mass Index 47.8 Const General: healthy appearing, comfortable, no acute distress, alert and awake Nutritional Appearance: well nourished Orientation/consciousness: patient oriented x3 HENMT Head: Yes normocephalic and Yes atraumatic Eyes Eyelids: Yes eyelids normal Conjunctivae: conjunctivae normal Sclerae: sclerae normal Corneas: corneas normal Pupils: Equal, round and reactive pupils present EOM: EOMs intact bilaterally Resp Effort & Inspection: normal respiratory effort, able to speak in complete sentences and not labored Skin General skin exam: no rashes or lesions noted and elasticity normal Neuro General: patient oriented x3 Cranial nerves: Yes Equal, round and reactive pupils present and Yes Bilaterally intact EOM present Cognition (Neuro): normal cognition Extrem Other: Patient has marked edema of the left lateral ankle/left proximal to midfoot of the dorsal surface. This area is exquisitely tender to palpation. No open wounds or lesion Medications Administered Discontinued Medications Generic Name Dose Route Start Last Admin Trade Name Freq PRN Reason Stop Dose Admin Oxycodone HCl 5 mg 03/21/23 21:17 03/21/23 21:21 Oxycodone Hcl Immed Release 5 Mg Tablet PO 03/21/23 21:18 5 mg ONCE ONE Administration Procedures Orthopedic Splinting/Casting Injury #1: Side: left Lower Extremity Injury Location: ankle and foot Lower Extremity Immobilizer: stirrup splint Other Orthopedic Equipment: crutches Medical Decision Making Medical Decision Making MDM Narrative: 57-year-old female presents for evaluation of left ankle pain after a fall/twisting injury. X-ray shows concern for possible navicular fracture. Clinically the patient is tender over this area with significant edema. We will treat as a fracture. There is no actual ankle fracture with the patient we put in a sugar-tong splint and be discharged nonweightbearing on crutches with orthopedic follow-up. Differential Diagnosis Differential Diagnoses: The differential diagnosis associated with the presentation includes Ankle fracture Foot fracture Contusion Ankle sprain Ligamentous injury Independent Interpretation I performed an independent interpretation of an: Plain X-Ray (No obvious ankle fracture or dislocation) Radiology Impression Discussion of test interpretation with radiology: I have reviewed the radiologist's reading. Radiologist Impression: No obvious ankle fracture. Possible navicular fracture. Discharge Plan Discharge Clinical Impression: Ankle sprain and strain, Fracture of navicular bone of foot Patient Disposition: Home, Self-Care Instructions: Crutch Instructions (ED), Foot Fracture in Adults (ED) Additional Instructions: Your x-ray shows that there is no ankle fracture There is a likely fracture of the bone in your midfoot called the navicular bone Use ibuprofen/Tylenol as needed for pain You should be nonweightbearing and use the crutches to get around Follow-up with orthopedics at the number provided Use oxycodone for more severe breakthrough pain This may make you sleepy, did not drink alcohol or drive after taking Prescriptions: New oxycodone 5 mg tablet 5 mg PO Q6H PRN (Reason: severe pain (scale score 7-10)) Qty: 12 0RF Rx Instructions: Partial Fill upon patient request. No Action furosemide [Lasix] 20 mg tablet 20 mg PO BID Qty: 8 0RF pramipexole 1 mg tablet 1 mg PO TID methocarbamol 500 mg tablet 1,500 mg PO TID omeprazole 40 mg capsule,delayed release(DR/EC) 1 cap PO DAILY acetaminophen 500 mg tablet 500 mg PO Q6H PRN (Reason: Pain) ferrous sulfate [FeroSul] 325 mg (65 mg iron) tablet 325 mg PO BID nystatin-triamcinolone 100,000-0.1 unit/g-% cream 1 appl topical BID montelukast 10 mg tablet 1 tab PO DAILY albuterol sulfate [ProAir HFA] 90 mcg/actuation HFA aerosol inhaler 2 puff inhalation Q6H fluoxetine 20 mg capsule 3 cap PO QAM morphine 15 mg tablet 15 mg PO Q4-6H PRN (Reason: pain) Qty: 10 0RF Rx Instructions: The patient may ask for partial fill; Partial Fill upon patient request. Interventions: ED Discharge Assessment Last Done: 03/21/23 21:47 Discharge Date/Time: 03/21/23 21:48
== END 2023-03-21 21:48 | disposition home or self-care (01) ==
PROVIDERS: Emergency Provider Internal Medicine; PCP Nurse Practitioner
DX: S92.252A Displaced fracture of navicular [scaphoid] of left foot, initial encounter for closed fracture (principal); S93.402A Sprain of unspecified ligament of left ankle, initial encounter; S96.912A Strain of unspecified muscle and tendon at ankle and foot level, left foot, initial encounter; X50.1XXA Overexertion from prolonged static or awkward postures, initial encounter; Z86.718 Personal history of other venous thrombosis and embolism; R60.0 Localized edema; Y93.89 Activity, other specified; Y92.9 Unspecified place or not applicable; Y99.9 Unspecified external cause status
CPT/HCPCS: 73610; 99283